=== PATIENT | female | born 1985 | race Caucasian/White ===

== ENCOUNTER 2016-11-19 22:37 | Emergency (ER) | payer BC ==
[2016-11-19 22:46] VITALS: BP 119/89
--- NOTE | 2016-11-19 23:13 | EDM.PDOC ---
ED HPI GENERAL MEDICAL PROBLEM - General Chief Complaint: ENT Problem Stated Complaint: NECK/EAR PAIN COUGH Time Seen by Provider: 11/19/16 22:52 Source of Information: Reports: Patient History Limitations: Reports: No Limitations - History of Present Illness INITIAL COMMENTS - FREE TEXT/NARRATIVE: The patient presents with right air pain and muffled hearing from her right ear. This started tonight when she went to bed. She has had a bad cold for a few days. She has a cough, congestion, runny nose and sore throat. She now has right ear pain. She has no asthma and she does not smoke. Onset: Gradual Duration: Day(s): (5) Location: Reports: Other (Right ear) Quality: Reports: Pressure Severity: Moderate Improves with: Reports: None Worsens with: Reports: None Associated Symptoms: Reports: Cough, cough w sputum, Fever/Chills Right Ear Pain Score (Numeric/FACES): 6 - Related Data Allergies Allergy/AdvReac Type Severity Reaction Status Date / Time No Known Allergies Allergy Verified 11/19/16 22:46 Home Meds: Home Meds Amoxicillin 1,000 mg PO BID #40 capsule 11/19/16 [Rx] Codeine/Promethazine [Phenergan with Codeine] 5 - 10 ml PO Q6HR PRN #300 ml [Rx] Folic Acid 1 tab PO DAILY 11/19/16 [History] Multivitamin [Multivitamins] 1 tab PO DAILY 11/19/16 [History] [place]-3 Fatty Acids [Fish Oil] 1 tab PO DAILY 11/19/16 [History] Past Medical History - Past Health History Medical/Surgical History: Denies Medical/Surgical History Social & Family History - Tobacco Use Smoking Status *Q: Never Smoker - Caffeine Use Caffeine Use: Reports: Coffee - Recreational Drug Use Recreational Drug Use: No ED ROS ENT - Review of Systems Review Of Systems: See Below Constitutional: Reports: Fever, Chills HEENT: Reports: Ear Pain (right), Hearing Loss (muffled), Other (congestion and runny nose) Respiratory: Reports: Cough, Sputum Cardiovascular: Reports: No Symptoms Endocrine: Reports: No Symptoms GI/Abdominal: Reports: No Symptoms : Reports: No Symptoms Musculoskeletal: Reports: No Symptoms Skin: Reports: No Symptoms Neurological: Reports: No Symptoms ED EXAM, ENT - Physical Exam Exam: See Below Exam Limited By: No Limitations General Appearance: Alert, No Apparent Distress Ears: Normal External Exam, Normal Canal, TM Erythema (right), TM Fluid (right) Nose: Clear Rhinorrhea Mouth/Throat: Tonsillar Erythema, Tonsillar Swelling Head: Atraumatic, Normocephalic Neck: Normal Inspection Respiratory/Chest: No Respiratory Distress, Lungs Clear, Normal Breath Sounds Cardiovascular: Regular Rate, Rhythm, No Edema, No Murmur GI/Abdominal: Soft, Non-Tender, No Organomegaly, No Mass Extremities: Normal Inspection Course - Vital Signs Last Recorded V/S: Last Vital Signs Temp 97.8 F 11/19/16 22:39 Pulse 79 11/19/16 22:39 Resp 18 11/19/16 22:39 BP 119/89 11/19/16 22:39 Pulse Ox 100 11/19/16 22:39 Departure - Departure Time of Disposition: 23:20 Disposition: Home, Self-Care 01 Condition: Good Clinical Impression: Viral upper respiratory illness, Bronchitis Otitis media Qualifiers: Otitis media type: serous Chronicity: acute Laterality: right Recurrence: not specified as recurrent Qualified Code(s): H65.01 - Acute serous otitis media, right ear - Discharge Information Prescriptions: Codeine/Promethazine [Phenergan with Codeine] 5 - 10 ml PO Q6HR PRN #300 ml PRN Reason: Cough Amoxicillin 1,000 mg PO BID #40 capsule Referrals: Lucia Cui PA [Physician [employer]] - 1 Week Forms: ED Department Discharge, Return to Work/School Form Additional Instructions: Take the amoxicillin 2 pills 2 times per day for 10 days. Take the phenergan 5 to 10mls every 4 to 6 hours as needed for cough. Drink plenty of fluids. Please return if you are worse.
== END 2016-11-19 23:31 | disposition home or self-care (01) ==
LOC: JD.ED 22:37
DX: H65.01 Acute serous otitis media, right ear (principal); J40 Bronchitis, not specified as acute or chronic; J06.9 Acute upper respiratory infection, unspecified; B97.89 Other viral agents as the cause of diseases classified elsewhere; Z79.899 Other long term (current) drug therapy; Z79.82 Long term (current) use of aspirin
CPT/HCPCS: 99283